=== PATIENT | male | born 1985 | race Caucasian/White ===

== ENCOUNTER → 2023-12-08 09:15 | Outpatient (REF) | payer OTHER, SELFPAY | LOC: DHSLP 09:15 | PROVIDERS: ATTENDING PHYSICIAN Family Medicine | DX: G47.33 Obstructive sleep apnea (adult) (pediatric) (principal); R06.83 Snoring | CPT/HCPCS: 95810 ==

== ENCOUNTER 2024-03-03 10:07 | Emergency (ER) | payer OTHER, SELFPAY ==
[2024-03-03 10:19] VITALS: BP 155/102
--- NOTE | 2024-03-03 11:18 | ED.GENMED ---
History of Present Illness
General
Chief Complaint: Chest Pain
Source: patient
Time Seen by Provider: 03/03/24 10:56
Travel History
Have you had any contact with someone who has COVID-19?: No
Do you have any symptoms of coronavirus? Fever > 100 degrees, chills, cough, shortness of breath, sore throat, loss of taste or smell, muscle aches, or headache?: No
History of Present Illness
History of Present Illness:
39-year-old male presenting to the emergency department for evaluation of left-sided chest discomfort that is been ongoing for the last couple of days intermittently but now accompanied with nausea with patient feeling his symptoms are likely
related to his GERD however patient was concerned for potential cardiac problems to contact his primary care provider today who recommended he come to the ER further evaluation. Patient states that the pain is not exacerbated or alleviated with
anything, describes it to be a pinching sensation to the left side of his chest, nonradiating and other than the nausea no other associated symptoms. He denies any fevers, chills, rigors, recent illnesses, coughing, pleurisy, abdominal pain,
vomiting, bowel changes or any other concerns. 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 Social history was insignificant and
family history was negative for any cardiac disease.
Past History
Past History
ED Past Medical History: GERD, HTN, Psychiatric (Bipolar disorder, anxiety), Other (MRSA infection) and Other (Anxiety); Negative IDDM
ED Past Surgical History: Other (Cataract extraction)
Social History
Tobacco: Former smoker
Alcohol: None
Drug: None
Personal: Single
Living: with family
Employment: Employed
Family History
Family History: Negative Diabetes, Hypertension or CAD
Review of Systems
Review of Systems
All Other Systems: ROS reviewed and negative except as documented in HPI and ROS
Phy Exam
Physical Exam
Physical Exam:
GENERAL: Alert , in no apparent distress
EYE: conjunctiva clear
NECK: Supple
ENT: o/p clr, mmm.
CARDIAC: Regular rate and rhythm, no murmur
LUNGS: Clear breath sounds bilaterally, no acute respiratory distress, no wheezes/rales/rhonchi
Abdomen: Soft, nontender, nondistended
NEUROLOGICAL: Alert and oriented
SKIN: Warm and dry, skin intact.
MUSCULOSKELETAL: well perfused.
PSYCH: Normal and appropriate interaction.
Scores
Heart Failure Risk
Heart Failure Risk Score: Not Applicable
Heart Score for Chest Pain Patients
STEMI patient?: No
History: Slightly or Non-Suspicious
ECG: Normal
Age: </= 45 years
Risk Factors: No Risk Factors
Troponin: </= Normal Limit
Heart Score for Chest Pain Patients: 0
Heart Score Risk: 2.5% MACE over next 6 weeks
Withdrawal Assessment of Alcohol
Withdrawal Assessment Completed?: Not applicable
Course
Orders/Labs/Results
Orders:
Orders
03/03/24 10:13
EKG [Electrocardiogram (*1)] Urgent
Reason for Study: Other
Other Reason for Exam: Chest Pressure
03/03/24 10:14
EKG- Treatment ONCE
03/03/24 11:05
Famotidine [Pepcid] 20 mg IV NOW STA
Mag Hydrox/Al Hydrox/Simeth [Maalox] 30 ml Phenobarb/Hyoscy/Atropine/Scop [] 10 ml Viscous Lidocaine 2% [Xylocaine Viscous Cup] 10 ml PO NOW
CR Chest - 2 Views Urgent
Comment:
Reason For Exam: chest pain, nausea
03/03/24 11:20
Phenobarb/Hyoscy/Atropine/Scop [] 10 ml .ROUTE .[facility]
03/03/24 11:21
Mag Hydrox/Al Hydrox/Simeth [Maalox] 30 ml .ROUTE .[facility]-MED ONE
Viscous Lidocaine 2% [Xylocaine Viscous Cup] 15 ml .ROUTE .[facility]
03/03/24 11:38
Complete Blood Count/With Diff Urgent
Comprehensive Metabolic Panel Urgent
Lipase Urgent
Troponin I Urgent
Abnormal Lab Results
03/03/24
11:38
MPV 11.3 H fL
(7.4-10.4)
Chloride 108 H mmol/L
(98-107)
03/03/24 11:38
03/03/24 11:38
Vital Signs
Initial and Last Documented VS:
Initial Vital Signs
Temp Pulse Resp BP Pulse Ox
99.9 F 94 18 155/102 97
03/03/24 10:19 03/03/24 10:19 03/03/24 10:19 03/03/24 10:19 03/03/24 10:19
Last Documented Vital Signs
Temp Pulse Resp BP Pulse Ox
99.9 F 74 15 122/87 96
03/03/24 10:19 03/03/24 13:09 03/03/24 13:00 03/03/24 13:09 03/03/24 13:00
MDM/Problems Addressed
Differential Diagnosis Includes:
GERD, gastritis, hiatal hernia, atypical ACS presentation, musculoskeletal chest wall pain
MDM/Problems Addressed:
39-year-old male presenting the emergency department for evaluation of chest discomfort and nausea that has been ongoing for the last few days. Patient states the symptoms seem to wax and wane without any specific reasoning. Currently stating
symptoms are waxing and waning since arriving to the emergency department. EKG done in triage is nonischemic. Had been seen by cardiology as an outpatient around 1 year ago. Patient does note he forgot to take his medications last night which is
why he believes his blood pressure is little bit elevated this morning but normally notes he is readily compliant with medication. Will perform cardiac workup as well as treat with GI cocktail. Will reassess following. If no abnormalities
anticipate chest pain hotline consultations to expedite cardiac visit.
Chronic conditions affecting care: HTN
*Pulse Oximetry
Patient hypoxic: no
*EKG
Interpreted by ED Provider?: Yes
Interpretation: normal
Heart Rate: 93
Rate: normal
Rhythm: sinus
Ischemia: no ischemia
*Drug Inspector Interpretation
Rate: normal
Rhythm: sinus
*Critical Care Note
Total Time (30-74mins, 75-104mins- exclusive of procedures): Not Applicable
Data Reviewed
Review of Other/Old Records Reveals: Labs and Records
Source: patient and records
Patient Management
Escalation/DeEscalation of care consider admission/obs:
Patient's workup is unremarkable. Nonischemic EKG, negative troponin and chest x-ray is otherwise within normal limits. Chest pain hotline was notified. He does note some improvement with the medications provided. Aware of return precautions to
ER but otherwise stable for discharge home
ED Attending Note
-
Portions of this chart may have been created with voice recognition software.� Occasional wrong word or��sound alike� substitutions may have occurred due to the inherent limitations of voice recognition software.
Discharge Plan
Departure
Patient Disposition: Home (Routine Discharge)
Date of Disposition: 03/03/24
Time of Disposition: 13:00
Patient with high blood pressure during this ER visit?: Yes
Discharge Problem:
Chest pain
Instructions: Chest Pain CBC Follow Up
Prescriptions:
No Action
cyclobenzaprine 10 MG tablet
10 mg PO TIDPRN PRN (Reason: muscle spasm) Qty: 12 0RF
ibuprofen 600 MG tablet
600 mg PO Q6H Qty: 30 0RF
oxycodone-acetaminophen 5 MG/325 MG tablet
1 tab PO Q4HPRN PRN (Reason: pain) Qty: 15 0RF
tamsulosin 0.4 MG capsule
0.4 mg PO DAILY Qty: 10 0RF
sulfamethoxazole-trimethoprim 1 TABLET tablet
1 tab PO BID Qty: 10 0RF
cephalexin [Keflex] 500 MG capsule
500 mg PO TID Qty: 21 0RF
pantoprazole [Protonix] 40 mg tablet,delayed release (DR/EC)
40 mg PO BID Qty: 60 0RF
Referrals:
Sujey Vann CRNP [Family Provider] -
Interventions
Interventions:
*Risk Screen - Suicide Last Done: 03/03/24 11:24
*General Assessment Last Done: 03/03/24 11:24
*Neglect/Abuse Screening Last Done: 03/03/24 11:24
ED- Fall Risk Assessment Last Done: 03/03/24 11:24
*ED COVID-19 Vaccine History Last Done: 03/03/24 10:22
*Nursing Disposition Last Done: 03/03/24 13:09
ED- Cardiac Assessment Last Done: 03/03/24 11:24
Discharge Date and Time
Discharge Date/Time: 03/03/24 13:09
Print Language: [id number]
[2024-03-03 11:24] VITALS: BP 119/86; BMI 37.6
[2024-03-03] MEDS: MAALOX 50 PO (11:38)
[2024-03-03] MEDS: PEPCID 20 MG IV (11:40)
[2024-03-03 11:57] LABS: % Basophils 0.6 % (0-2); % Eosinophils 1.4 % (0-6); % Immature Granulocytes 0.3 % (0-0.5); % Lymphocytes 21.4 % (20.5-51.1); % Monocytes 7.6 % (1.7-9.3); % Neutrophils 68.7 % (42.2-75.2); Absolute Eosinophils 0.1 10^3/uL (0-0.7); Absolute Lymphocytes 1.3 10^3/uL (1.2-3.4); Absolute Monocytes 0.5 10^3/uL (0.1-0.6); Absolute Neutrophils 4.3 10^3/uL (1.4-6.5); Hematocrit 44.6 % (39.0-52.0); Hemoglobin 14.8 g/dL (13.0-18.0); Mean Corp Hgb Conc. 33.2 g/dL (33.0-37.0); Mean Corpuscular Hgb 29.7 pg (27.0-31.0); Mean Corpuscular Volume 89.6 fL (80.0-94.0); Mean Platelet Volume 11.3 fL (7.4-10.4); Nucleated Red Blood Cells % 0 % (-); Platelet Count 181 10^3/uL (130-400); Red Blood Cell Count 4.98 10^6/uL (4.70-6.10); Red Cell Dist. Width 12.9 % (11.5-14.5); White Blood Cell Count 6.2 10^3/uL (4.8-10.8)
[2024-03-03 12:00] VITALS: BP 111/72
[2024-03-03 12:10] LABS: ALT (SGPT) 32 U/L (0-50); AST (SGOT) 31 U/L (17-59); Albumin 4.3 g/dl (3.5-5.0); Alkaline Phosphatase 90 U/L (38-126); Blood Urea Nitrogen 14 mg/dl (9-20); Calcium 9.4 mg/dl (8.4-10.2); Carbon Dioxide 26 mmol/L (22-30); Chloride 108 mmol/L (98-107); Estimated Creatinine Clearance > 125 ml/min; Glucose 98 mg/dl (70-99); Lipase 49 U/L (23-300); Potassium 4.1 mmol/L (3.5-5.1); Sodium 141 mmol/L (135-145); Total Bilirubin 0.4 mg/dl (0.2-1.3); Total Protein 7.6 g/dl (6.3-8.2); eGFR > 60.00
[2024-03-03 12:30] LABS: Troponin I < 0.012 ng/ml
[2024-03-03 13:00] VITALS: BP 122/87
[2024-03-03 13:09] VITALS: BP 122/87
== END 2024-03-03 13:09 | disposition home or self-care (01) ==
LOC: EMR 10:07
PROVIDERS: Physician Assistant Medical; EMERGENCY PHYSICIAN Emergency Medicine; FAMILY PHYSICIAN Nurse Practitioner Adult Health
DX: R07.89 Other chest pain (principal); I10 Essential (primary) hypertension; K21.9 Gastro-esophageal reflux disease without esophagitis; Z87.891 Personal history of nicotine dependence
CPT/HCPCS: 99285; 96374; 71046; 80053; 83690; 84484; 85025; 93005

== ENCOUNTER → 2024-03-27 09:08 | Outpatient (REF) | payer OTHER, SELFPAY | LOC: RCS 09:08 | PROVIDERS: ATTENDING PHYSICIAN Nurse Practitioner; FAMILY PHYSICIAN Nurse Practitioner Adult Health; REFERRING PHYSICIAN Internal Medicine Cardiovascular Disease | DX: R07.89 Other chest pain (principal); E78.00 Pure hypercholesterolemia, unspecified; I10 Essential (primary) hypertension | CPT/HCPCS: 93017; 93350 ==

== ENCOUNTER 2024-07-22 13:50 | Observation (INO) | payer OTHER, SELFPAY ==
[2024-07-22] VITALS (7 sets, daily range): BP systolic 115–154; BP diastolic 69–97; BMI 36.0
[2024-07-22 11:05] LABS: % Basophils 0.7 % (0-2); % Eosinophils 1.8 % (0-6); % Immature Granulocytes 0.2 % (0-0.5); % Lymphocytes 30.9 % (20.5-51.1); % Neutrophils 46.4 % (42.2-75.2); Absolute Eosinophils 0.1 10^3/uL (0-0.7); Absolute Lymphocytes 1.3 10^3/uL (1.2-3.4); Absolute Monocytes 0.9 10^3/uL (0.1-0.6); Hematocrit 42.7 % (39.0-52.0); Hemoglobin 14.8 g/dL (13.0-18.0); Mean Corp Hgb Conc. 34.7 g/dL (33.0-37.0); Mean Corpuscular Hgb 29.2 pg (27.0-31.0); Mean Corpuscular Volume 84.4 fL (80.0-94.0); Mean Platelet Volume 10.8 fL (7.4-10.4); Nucleated Red Blood Cells % 0 % (-); Platelet Count 193 10^3/uL (130-400); Red Blood Cell Count 5.06 10^6/uL (4.70-6.10); Red Cell Dist. Width 12.2 % (11.5-14.5); White Blood Cell Count 4.3 10^3/uL (4.8-10.8)
[2024-07-22 11:19] LABS: ALT (SGPT) 65 U/L (0-50); AST (SGOT) 53 U/L (17-59); Alkaline Phosphatase 99 U/L (38-126); Blood Urea Nitrogen 18 mg/dl (9-20); Calcium 10.3 mg/dl (8.4-10.2); Carbon Dioxide 26 mmol/L (22-30); Chloride 103 mmol/L (98-107); Glucose 135 mg/dl (70-99); Sodium 141 mmol/L (135-145); Total Bilirubin 0.5 mg/dl (0.2-1.3); eGFR > 60.00
[2024-07-22 11:29] LABS: Troponin I < 0.012 ng/ml
[2024-07-22 11:50] LABS: TSH < 0.02 uIU/ml (0.47-4.68)
--- NOTE | 2024-07-22 12:17 | ED.GENMED ---
History of Present Illness
General
Chief Complaint: Heart Rate Problem
Source: patient
Exam Limitations: none
Time Seen by Provider: 07/22/24 11:59
Nursing documentation reviewed up to this point in time: agreed with
History of Present Illness
History of Present Illness:
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
but worsened over the past 12 to 24 hours, heart rate as high as 170, he does get panic attacks occasionally, he has had weight loss but he states it was intentional, no fevers no chest pain or shortness of breath he has a PCP nurse practitioner and
a psychiatrist
Denies any history of thyroid disorder on no meds
Past History
Past History
ED Past Medical History: GERD, HTN, Psychiatric (Bipolar disorder, anxiety), Other (MRSA infection) and Other (Anxiety); Negative IDDM
ED Past Surgical History: Other (Cataract extraction)
Social History
Tobacco: Former smoker
Alcohol: None
Drug: None
Personal: Single
Living: with family
Employment: Employed
Family History
Family History: Negative Diabetes, Hypertension or CAD
Review of Systems
Review of Systems
All Other Systems: Not applicable
Constitutional: Reports weight loss; Denies fever, fatigue or night sweats
EENT: Reports no symptoms
Respiratory: Reports no symptoms
Cardiac: Reports palpitations and syncope (Near syncope); Denies chest pain
ABD/GI: Reports no symptoms
: Reports no symptoms
Musculoskeletal: Reports no symptoms
Neurological: Reports dizzy
Endocrine: Reports no symptoms
Hematologic/Lymphatic: Reports no symptoms
Phy Exam
Physical Exam
Physical Exam:
Physical Exam
General: no apparent distress, not acutely ill
Neck: No jaundice no
Heart: Tachycardic
Lungs: no acute respiratory distress. clear bilaterally
Abdomen: Not tender
Neuro: alert and oriented. no focal neurological deficits
Skin: no rash
Psychiatric: well kept. interactive and cooperative
Extremities: no edema. no calf tenderness
Course
Orders/Labs/Results
Orders:
Orders
07/22/24 10:42
ECG [Electrocardiogram (*1)] Urgent
Reason for Study: Tachycardia
EKG- Treatment ONCE
07/22/24 10:55
Complete Blood Count/With Diff Urgent
Comprehensive Metabolic Panel Urgent
Free T3 Urgent
Comment: ADD
Free T4 Urgent
Comment: ADD
TSH Urgent
Troponin I Urgent
07/22/24 12:01
Add On- LAB Urgent
Tests Added?: Free T4, T3
07/22/24 12:09
Metoprolol [Lopressor] 5 mg IV NOW STA
07/22/24 12:36
Add On- LAB Urgent
Tests Added?: urine drug screen
07/22/24 13:10
Admit/Transfer Patient As Directed
Co-Sign Provider:
Level of Care: Inpatient admission
Assign to:: Medical/Surgical
Physician / Group: Hospitalist
Diagnosis: Thyrotoxicosis
Reason for Hospitalization: Thyrotoxicosis
Expected length of stay greater than two midnights?: Yes
ELOS- Estimated Length of Stay in days: 3
I certify the patient meets the requirements for IP care: Yes
07/22/24 13:11
Code Status As Directed
Resuscitation Status: Full Code
07/22/24 13:38
Add On- LAB Routine
Tests Added?: intact pth
07/22/24 13:40
Hydrocortisone Sod Succ [Solu-Cortef] 300 mg 0.9% Sodium Chloride 100 ml [Nss] 100 ml IV NOW
07/22/24 14:00
Methimazole [Tapazole] 20 mg PO Q6H
Methimazole [Tapazole] 20 mg PO Q6H
07/22/24 14:37
Acetaminophen [Tylenol] 650 mg PO Q4HPRN PRN
Alprazolam [Xanax] 0.5 mg PO DAILYPRN PRN
Bisacodyl [Dulcolax] 10 mg RECTAL [id number] PRN
Clonazepam [Klonopin] 1 mg PO BIDPRN PRN
Docusate W/Senna [Senokot-S] 1 tablet PO BIDPRN PRN
Polyethylene Glycol Powder [Miralax] 17 grams PO DAILYPRN PRN
07/22/24 14:37
Activity As Directed
Activity Level: Ambulate
Intake/ Output As Directed
Frequency: Per unit guidelines
Neurological Checks As Directed
Frequency: Per unit guidelines
Vital Signs As Directed
Frequency: Per unit guidelines
Weight As Directed
Frequency: Daily
Pulse Ox/spot Check [RESP] Routine
Quantity: 1
Thyroid US [US Thyroid/Neck/Head] Routine
Comment:
Reason For Exam: Hyperthyroidism
DX Deep Vein Thrombosis Video Routine
07/22/24 Dinner
Cholesterol Lowering
At Your Request: Full Participation
Cholesterol Lowering: Sodium, 2 Gram
07/22/24 16:00
Hydrocortisone Sod Succinate [Solu-Cortef] 100 mg IV Q8
07/22/24 18:00
Aspirin Low Dose EC [Aspir Low (Enteric Coated)] 81 mg PO QPM
Atorvastatin [Lipitor] 40 mg PO QPM
Enoxaparin Sodium [Lovenox] 40 mg SC QPM
07/22/24 22:00
Cyclobenzaprine HCl [Flexeril] 10 mg PO HSPRN PRN
Oxcarbazepine [Trileptal] 600 mg PO HS
Pantoprazole [Protonix] 40 mg PO HS
Quetiapine Fumarate [Seroquel] 300 mg PO HS
07/23/24 06:01
Complete Blood Count/With Diff IN AM
07/23/24 08:00
Oxcarbazepine [Trileptal] 300 mg PO DAILY
Abnormal Lab Results
07/22/24
10:55
WBC 4.3 L 10^3/uL
(4.8-10.8)
MPV 10.8 H fL
(7.4-10.4)
Absolute Monos (auto) 0.9 H 10^3/uL
(0.1-0.6)
Monocytes % 20.0 H %
(1.7-9.3)
Glucose 135 H mg/dl
(70-99)
Calcium 10.3 H mg/dl
(8.4-10.2)
ALT 65 H U/L
(0-50)
TSH < 0.02 L uIU/ml
(0.47-4.68)
Free T4 4.45 H ng/dl
(0.78-2.19)
Free T3 > 22.80 H pg/ml
(2.77-5.27)
07/22/24 10:55
07/22/24 10:55
Vital Signs
Initial and Last Documented VS:
Initial Vital Signs
Temp Pulse Resp BP Pulse Ox
97.8 F 131 16 137/91 97
07/22/24 10:47 07/22/24 10:47 07/22/24 10:47 07/22/24 10:47 07/22/24 10:47
Last Documented Vital Signs
Temp Pulse Resp BP Pulse Ox
98.8 F 104 18 126/89 96
07/24/24 11:22 07/24/24 11:22 07/24/24 11:22 07/24/24 11:22 07/24/24 11:22
MDM/Problems Addressed
Differential Diagnosis Includes:
Palpitations hyperthyroid, arrhythmia panic attack electrolyte abnormality
MDM/Problems Addressed:
Palpitations low TSH
Chronic conditions affecting care:
No history of thyroid, is hypertensive with mental illness
Chronic conditions affecting care: Psychiatric illness
Acute Exacerbation and/or Progression of Chronic Illness: HTN and Psychiatric illness
*Critical Care Note
Total Time (30-74mins, 75-104mins- exclusive of procedures): Not Applicable
ED Attending Note
-
Portions of this chart may have been created with voice recognition software.� Occasional wrong word or��sound alike� substitutions may have occurred due to the inherent limitations of voice recognition software.
Discharge Plan
Departure
Patient Disposition: Admit
Date of Disposition: 07/22/24
Time of Disposition: 12:42
Admit to: Telemetry
Presentation/result/management discussed w/ accepting MD/DO: Hospitalist
Patient with high blood pressure during this ER visit?: No
Condition: Fair
Covid-19: Not Applicable
Discharge Problem:
Hyperthyroidism
Interventions
Interventions:
*Risk Screen - Suicide Last Done: 07/22/24 10:47
*General Assessment Last Done: 07/22/24 10:47
*Neglect/Abuse Screening Last Done: 07/22/24 10:47
*ED COVID-19 Vaccine History Last Done: 07/22/24 11:22
*Nursing Disposition Last Done: 07/22/24 14:39
ED- Cardiac Assessment Last Done: 07/22/24 11:22
ED- Pulmonary Assessment Last Done: 07/22/24 11:22
Discharge Date and Time
Discharge Date/Time: 07/22/24 14:39
[2024-07-22] MEDS: LOPRESSOR 5 MG IV ×2 (12:19→23:16)
--- NOTE | 2024-07-22 12:38 | HPS.HSE ---
Family Physician
-
Family Physician: MARIELA Mera
Chief Complaint
-
Tachycardia
History of Present Illness
39 years old male with PMH of anxiety, essential hypertension, bipolar disorder, GERD, who presented to [facility] ED on 07/22/2024 with 1 day history of palpitations and near syncope. He states that he usually gets panic attacks but has never had similar
symptoms in the past. He also reports 2 weeks history of diarrhea, [place] stool chart type , but denied abdominal pain, chest pain, shortness of breath, neck pain, fever, chills, nausea, or vomiting. He endorses 15lbs weight loss in 1.5 months
which is intentional with dieting and exercise.
Medical History
Past Medical History
Past Medical History: Reports GERD, HTN and Hypercholesterolemia; Denies Asthma or IDDM
Past Surgical History: Reports None
Social History
Tobacco: Non-smoker
Alcohol: None
Drug: None
Personal: Single
Living: With Family
Employment: Employed
Family History
Family History: Not pertinent
Allergies / Home Medications
Allergies reflects when Allergies were last updated in [facility].
Home Medications with original date entered in [facility]
Allergy/Medication List:
Allergies
Allergy/AdvReac Type Severity Reaction Status Date / Time
citalopram Allergy Unknown Verified 07/22/24 10:46
Home Medications
�Medication �Instructions �Recorded
alprazolam 0.5 mg tablet (Xanax) 0.5 mg PO DAILYPRN PRN anxiety 07/22/24
aspirin 81 mg tablet,delayed 81 mg PO QPM Blood Clot 07/22/24
release Prevention/Tx
atorvastatin 40 mg tablet (Lipitor) 40 mg PO QPM High Cholesterol 07/22/24
clonazepam 1 mg tablet 1 mg PO BIDPRN PRN anxiety 07/22/24
cyclobenzaprine 10 mg tablet 10 mg PO HSPRN PRN muscle spasms 07/22/24
fluticasone propionate 50 1 spray intranasal BID Allergies 07/22/24
mcg/actuation nasal
spray,suspension
lisinopril 10 1 tab PO QPM Blood Pressure 07/22/24
mg-hydrochlorothiazide 12.5 mg
tablet
oxcarbazepine 300 mg tablet 300 mg PO DAILY mental health 07/22/24
(Trileptal)
oxcarbazepine 600 mg tablet 600 mg PO HS mental health 07/22/24
(Trileptal)
pantoprazole 40 mg tablet,delayed 40 mg PO HS Gastrointestinal Issue 07/22/24
release (Protonix)
quetiapine 300 mg tablet (Seroquel) 300 mg PO HS mental health 07/22/24
Review of Systems
-
History Source: Patient
A 12 point ROS was completed and negative except as noted: Yes
Skin: Reports Other (Diffuse flushing)
Endocrine: Reports No Symptoms
Physical Exam
Vital Signs
Vital Signs
Temp Pulse Resp BP Pulse Ox
97.8 F 113 19 154/88 95
07/22/24 10:47 07/22/24 12:19 07/22/24 11:30 07/22/24 12:19 07/22/24 12:00
Physical Exam
General: Well Developed, Well Nourished and No Apparent Distress
HEENT: NormoCephalic, Moist mucous membranes and Atraumatic
Respiratory: Clear; No Wheezes or Crackles
Cardiac: S1/S2 and Regular Rhythm; No Murmur or Rub
GI: Soft, Non Tender, Non Distended and Normal Bowel Sounds; No Organomegaly
Rectal: Deferred by Provider
Musculoskeletal: No Clubbing, No Cyanosis and No Edema
Skin: Warm and Other (Diffusely flushed); No Rash
Neuro: Awake, Alert, AO x 3 and Nonfocal/grossly intact
Psych: Calm and Intact Judgment/Insight
Laboratory Results
-
07/22/24 10:55
07/22/24 10:55
Laboratory Results
Total Bilirubin 0.5 mg/dl (0.2-1.3) 07/22/24 10:55
AST 53 U/L (17-59) 07/22/24 10:55
ALT 65 U/L (0-50) H 07/22/24 10:55
Alkaline Phosphatase 99 U/L (38-126) 07/22/24 10:55
Troponin I < 0.012 ng/ml 07/22/24 10:55
Data Reviewed
-
Diagnostic Radiology: Image Personally Visualized and interpreted
Lab Data: Labs Reviewed by me and Discussed with Physician
Old Records: Reviewed
Impression/Plan
-
IMPRESSION: 39 years old male with PMH of essential hypertension, anxiety, hypercholesterolemia, presented with his mom at ED on 07/22/2024 with 1 day history of palpitations and near syncope. Reports 15lbs intentional weight loss.
Assessment/plan:
#Thyrotoxicosis/hyperthyroidism
-Admit to observation.
-Monitor on telemetry.
-Does not meet criteria for thyroid storm; palpitations, diarrhea and tachycardia.
-Reports TSH 0.41 in January, currently on detectable; T3 22.8, T4 4.45.
-Denies family history of autoimmune disease, recent URI or sick contacts.
-Thyroid ultrasound.
-Metoprolol XL 50 mg daily.
-Methimazole 20 mg given, will continue 10 mg tomorrow.
-No need for steroid.
-Check intact PTH.
-Check TRAb, TSI.
-Ultimately to follow-up with [facility] machine outpatient.
-Repeat thyroid function test in 6 weeks.
#Essential hypertension.
-Hold lisinopril while on metoprolol.
-Monitor blood pressure.
#Hyperlipidemia
-Continue atorvastatin
#Anxiety
-Continue Klonopin.
-Xanax as needed
#GERD
-Continue Protonix.
#Bipolar disorder
-Continue Seroquel.
DVT prophylaxis�Lovenox
CODE STATUS�full code
[2024-07-22 13:11] LABS: Free T3 > 22.80 pg/ml (2.77-5.27); Free T4 4.45 ng/dl (0.78-2.19)
--- NOTE | 2024-07-22 13:34 | W.PN.UPDATE ---
Update Note
Progress Note Update
39-year-old male presented the hospital with palpitations and near syncope. Heart rate was really high. Has had some diarrhea for the past 2 weeks. Denies any shortness of breath chest pain. He had palpitations last night. Weight loss but
patient was trying to lose weight. No jaundice
I personally performed a history and physical exam of the patient and discussed management with the resident. I reviewed the resident's note and agree with the documented findings and plan of care HPI/CC except for changes in documentation
Eye exam normal
No jaundice
Cardiovascular system S1-S2 tachycardic
Chest clear to auscultation
Abdomen soft and nontender
No pedal edema
No thyroid tenderness or thyromegaly noted
EKG reviewed by me sinus tachycardia no ischemia, no other
06/13/2023-normal size and wall thickness and systolic function. EF 55 to 60%. Mild concentric LVH.
# Hyperthyroidism/thyrotoxicosis
Palpitations, tachycardia and diarrhea
15 pound weight loss in the last month and a half. Patient also states that he was trying to lose weight with diet and exercise 2.
No evidence of heart failure, arrhythmia no eye symptoms
Does not look like an thyroid storm
No steroids for now
Methimazole 20 mg already given. Continue 10 mg daily dosage
Check thyroid receptor antibody and thyroid-stimulating immunoglobulin to rule out Graves' disease
Check intact PTH
Ultrasound of the thyroid
Metoprolol 50 mg daily
Repeat thyroid function test in 6 weeks.
Needs endocrine follow-up as outpatient
TSH was 0.41 in February 07
# Hypertension-hold off on lisinopril hydrochlorothiazide and do metoprolol 50 mg daily
# Hyperlipidemia-continue atorvastatin
# Anxiety-continue Klonopin
# Bipolar disease-continue Seroquel, Trileptal, o be continued
# GERD-continue PPI
# Obesity-sleep study 12/08/2023 did not show any evidence of sleep disorder
# DVT prophylaxis-Lovenox
# Full code
Discussed with patient's mother at bedside
[2024-07-22] MEDS: TOPROL XL 50 MG PO (15:09)
[2024-07-22] MEDS: TAPAZOLE 20 MG PO (15:10)
[2024-07-22 15:11] LABS: Intact PTH 16.1 pg/ml (13.6-85.8)
[2024-07-22] MEDS: LIPITOR 40 MG PO (17:06)
[2024-07-22] MEDS: ASPIR LOW (ENTERIC COATED) 81 MG PO (17:06)
[2024-07-22] MEDS: LOVENOX 40 MG SC (17:06)
[2024-07-22 18:10] LABS: Amphetamines Negative (Negative); Barbiturates Negative (Negative); Benzodiazepines Positive (Negative); Buprenorphine Negative (Negative); Cocaine Negative (Negative); Methadone Negative (Negative); Methamphetamines Negative (Negative); Opiates Negative (Negative)
[2024-07-22 18:11] LABS: Marijuana Negative (Negative); Phencyclidine Negative (Negative); Tricyclic Antidepressants Positive (Negative)
[2024-07-22 18:42] LABS: Fentanyl, Urine Negative (Negative)
[2024-07-22] MEDS: TRILEPTAL 600 MG PO (21:57)
[2024-07-22] MEDS: PROTONIX 40 MG PO (21:57)
[2024-07-22] MEDS: XANAX 0.5 MG PO (22:49)
--- NOTE | 2024-07-22 23:11 | W.PN.UPDATE ---
Update Note
Progress Note Update
-bp 154/81, hr 168, denied SOB or chest pain. One time order of Lopressor 5mg IV was given.
--- NOTE | 2024-07-23 01:41 | PTCARENOTE ---
@2144;Pt stated,'I already took my Seroquel 300mg at 1900 before my mother took my meds home.I normally take it at 1800 daily.'@2205;TT MARIELA Lira on above note and medication time was changed for tomorrow.
--- NOTE | 2024-07-23 01:45 | PTCARENOTE ---
@2310;Telephone call to [employer] and instructed on pt's anxiety and heart rate ranging 180-190, BP= 154/81 , POX room air =100% ,temp=98.3, Xanax 0.5mg po administered ,pt can feel his heart pounding ,declines chest/SOB pain and can't seem to sit
still.@2315;[employer] into see pt . Lopressor 5mg IV ordered and administered.@2350;CQ=240/69 & HR 125.@0005; heart rate now 116.Pt stated,'I feel so much better'.
[2024-07-23 06:00] VITALS: BMI 35.6
[2024-07-23 06:35] LABS: % Basophils 0.7 % (0-2); % Eosinophils 2.4 % (0-6); % Immature Granulocytes 0.2 % (0-0.5); % Lymphocytes 37.4 % (20.5-51.1); % Neutrophils 39.3 % (42.2-75.2); Absolute Eosinophils 0.1 10^3/uL (0-0.7); Absolute Monocytes 1.1 10^3/uL (0.1-0.6); Absolute Neutrophils 2.1 10^3/uL (1.4-6.5); Hematocrit 39.6 % (39.0-52.0); Hemoglobin 13.7 g/dL (13.0-18.0); Mean Corp Hgb Conc. 34.6 g/dL (33.0-37.0); Mean Corpuscular Hgb 28.3 pg (27.0-31.0); Mean Corpuscular Volume 81.8 fL (80.0-94.0); Nucleated Red Blood Cells % 0 % (-); Platelet Count 200 10^3/uL (130-400); Red Blood Cell Count 4.84 10^6/uL (4.70-6.10); Red Cell Dist. Width 12.2 % (11.5-14.5); White Blood Cell Count 5.4 10^3/uL (4.8-10.8)
[2024-07-23 06:58] LABS: Intact PTH 18.7 pg/ml (13.6-85.8)
[2024-07-23 07:19] VITALS: BP 121/72
[2024-07-23] MEDS: TOPROL XL 50 MG PO (07:41)
[2024-07-23] MEDS: TAPAZOLE 10 MG PO (07:42)
[2024-07-23] MEDS: TRILEPTAL 300 MG PO (07:42)
--- NOTE | 2024-07-23 07:55 | W.PN.HOSP.TC ---
Addendum entered and electronically signed by Jose López MD 07/23/24 15:43:
39-year-old male presented the hospital with palpitations and near syncope. Heart rate was really high. Has had some diarrhea for the past 2 weeks. Denies any shortness of breath chest pain. He had palpitations last night. Weight loss but
patient was trying to lose weight. No jaundice
I personally performed a history and physical exam of the patient and discussed management with the resident. I reviewed the resident's note and agree with the documented findings and plan of care HPI/CC except for changes in documentation
Eye exam normal
No jaundice
Cardiovascular system S1-S2 tachycardic
Chest clear to auscultation
Abdomen soft and nontender
No pedal edema
EKG reviewed by me sinus tachycardia no ischemia, no other
06/13/2023-normal size and wall thickness and systolic function. EF 55 to 60%. Mild concentric LVH.
# Hyperthyroidism/thyrotoxicosis
Palpitations, tachycardia and diarrhea
15 pound weight loss in the last month and a half. Patient also states that he was trying to lose weight with diet and exercise 2.
No evidence of heart failure, arrhythmia no eye symptoms
Does not look like an thyroid storm
No steroids for now
Methimazole 10 mg daily dosage
Check thyroid receptor antibody and thyroid-stimulating immunoglobulin to rule out Graves' disease
Check intact PTH
Ultrasound of the thyroid-no enlargement or nodules
Metoprolol XL 50 mg daily
Repeat thyroid function test in 6 weeks.
Needs endocrine follow-up as outpatient-Pt aware
TSH was 0.41 in February 07
# Hypertension-hold off on lisinopril hydrochlorothiazide and do metoprolol XL 50 mg daily
# Hyperlipidemia-continue atorvastatin
# Anxiety-continue Klonopin
# Stress echo 03/27/2024-normal LV size and function. No regional wall motion abnormalities. EF 55 to 60% no evidence of myocardial ischemia
# Bipolar disease-continue Seroquel, Trileptal, o be continued
# GERD-continue PPI
# Obesity-sleep study 12/08/2023 did not show any evidence of sleep disorder
# DVT prophylaxis-Lovenox
# Full code
Discussed with nursing
Monitor heart rate on telemetry if stable consider discharge.
Original Note:
Today's Communication/Plan
-
Continue Lopressor
Continue methimazole
Monitor on telemetry
Assessment / Plan
Assessment / Plan
IMPRESSION: 39 years old male with PMH of essential hypertension, anxiety, hypercholesterolemia, presented with his mom at ED on 07/22/2024 with 1 day history of palpitations and near syncope. Reports 15lbs intentional weight loss.
Assessment/plan:
#Thyrotoxicosis/hyperthyroidism
-Suspect viral etiology vs autoimmune.
-Thyroid ultrasound 07/22 negative for thyroid nodules.
-Continue metoprolol XL 50 mg daily.
-Continue methimazole 10 mg daily
-Intact PTH WNL.
-Monitor on telemetry
-TRAb, TSI pending.
-Ultimately to follow-up with hand dry cleaner outpatient.
-Repeat thyroid function test in 6 weeks.
#Essential hypertension.
-Hold lisinopril while on metoprolol.
-Monitor blood pressure.
#Hyperlipidemia
-Continue atorvastatin
#Anxiety
-Continue Klonopin.
-Xanax as needed
#GERD
-Continue Protonix.
#Bipolar disorder
-Continue Seroquel.
DVT prophylaxis�Lovenox
CODE STATUS�full code
Anticipated Discharge: Within 24 hours
Subjective/Interval History
-
Date of Service: July 23, 2024
Patient reported to have BP 154/81, heart rate 168 overnight, 5 mg IV Lopressor given. Reports no jaundice, or pedal edema. He denies shortness of breath, chest pain, abdominal pain, thyroid tenderness and states that his BM is currently
semiformed, he thinks he now has constipation.
Objective Data
-
Labs:
Laboratory Results
07/23/24 07/23/24 07/23/24
06:01 06:01 06:01
WBC 5.4
Hgb 13.7
Hct 39.6
Plt Count 200
Sodium Cancelled Pending
Potassium Cancelled Pending
Chloride Cancelled
Carbon Dioxide
BUN
Creatinine
Glucose
Calcium
Total Bilirubin
AST
ALT
Alkaline Phosphatase
07/23/24 07/23/24 07/23/24
06:01 06:01 06:01
WBC
Hgb
Hct
Plt Count
Sodium
Potassium
Chloride Pending
Carbon Dioxide Cancelled Pending
BUN Cancelled Pending
Creatinine Cancelled
Glucose
Calcium
Total Bilirubin
AST
ALT
Alkaline Phosphatase
07/23/24 07/23/24 07/23/24
06:01 06:01 06:01
WBC
Hgb
Hct
Plt Count
Sodium
Potassium
Chloride
Carbon Dioxide
BUN
Creatinine Pending
Glucose Cancelled Pending
Calcium Cancelled Pending
Total Bilirubin Cancelled
AST
ALT
Alkaline Phosphatase
07/23/24 07/23/24 07/23/24
06:01 06:01 06:01
WBC
Hgb
Hct
Plt Count
Sodium
Potassium
Chloride
Carbon Dioxide
BUN
Creatinine
Glucose
Calcium
Total Bilirubin Pending
AST Cancelled Pending
ALT Cancelled Pending
Alkaline Phosphatase Cancelled
07/23/24
06:01
WBC
Hgb
Hct
Plt Count
Sodium
Potassium
Chloride
Carbon Dioxide
BUN
Creatinine
Glucose
Calcium
Total Bilirubin
AST
ALT
Alkaline Phosphatase Pending
Vital Signs:
Vital Signs
Temp Pulse Resp BP Pulse Ox
98.5 F 107 17 121/72 96
07/23/24 07:19 07/23/24 07:41 07/23/24 07:19 07/23/24 07:41 07/23/24 07:19
I&O
07/22/24 07/23/24 07/24/24
06:59 06:59 06:59
Intake Total 960 / 960
Output Total 320 / 320
Balance 640 / 640
Review of Systems
-
History Source: Patient
All other systems: Not reviewed unless documented
Constitutional: Reports No Symptoms; Denies Fever or Fatigue
Respiratory: Reports No Symptoms; Denies Cough or Wheezing
Cardiac: Reports Palpitations; Denies Chest Pain or Syncope
Abdomen/GI: Reports No Symptoms; Denies Abdominal Pain, Nausea, Vomiting or Diarrhea
Genitourinary: Reports No Symptoms
Skin: Reports No Symptoms and Other
Physical Exam
-
General: Well Developed, No Apparent Distress and Comfortable
HEENT: Atraumatic and Moist Mucous Membranes
Respiratory: Clear to Auscultation; Negative Wheezes or Crackles
Cardiac: Regular Rhythm and S1/S2; Negative Murmur, Rub or Gallop
GI: Soft, Nontender, Nondistended and Normal Bowel Sounds; Negative Organomegaly
Rectal: Deferred by Provider
Musculoskeletal: No Clubbing, No Cyanosis and No Edema; Negative Cyanosis
Skin: Warm; Negative Rash or Jaundice
Neuro: Awake, AO x 3 and Nonfocal/Grossly Intact
Psych: Calm and Intact Judgement/Insight
Data Reviewed
-
Ultrasound: Report Reviewed by me and Discussed with Physician
Labs: Labs Reviewed by me and Discussed with Physician
Old Records: Reviewed
--- NOTE | 2024-07-23 12:28 | CM ---
CM following re: discharge planning.
Reviewed pt's chart, met with pt.
Pt is a 39 year old male, admitted with OBS status and primary dx of Thyrotoxicosis/hyperthyroidism. OBS status explained to the pt, pt expressed understanding, OBS letter signed, placed on chart, pt has a copy.
Pt reports he lives with parents 2SH, 1 step to enter, has no children. Pt described himself as independent in all areas [employer], drives, works.
PCP: Sujey Vann
Pharmacy: [facility].
D/C plan: home no needs. Mother to transport at discharge.
CM will follow with discharge plan updates as hospitalization progresses
[2024-07-23 12:30] LABS: ALT (SGPT) 57 U/L (0-50); AST (SGOT) 37 U/L (17-59); Albumin 3.8 g/dl (3.5-5.0); Alkaline Phosphatase 91 U/L (38-126); Blood Urea Nitrogen 24 mg/dl (9-20); Calcium 10.2 mg/dl (8.4-10.2); Carbon Dioxide 23 mmol/L (22-30); Chloride 102 mmol/L (98-107); Estimated Creatinine Clearance > 125 ml/min; Glucose 103 mg/dl (70-99); Potassium 4.3 mmol/L (3.5-5.1); Sodium 141 mmol/L (135-145); Total Bilirubin 0.5 mg/dl (0.2-1.3); Total Protein 6.6 g/dl (6.3-8.2); eGFR > 60.00
[2024-07-23] MEDS: XANAX 0.5 MG PO (14:20)
[2024-07-23 15:10] VITALS: BP 126/83
[2024-07-23] MEDS: ASPIR LOW (ENTERIC COATED) 81 MG PO (17:21)
[2024-07-23] MEDS: LIPITOR 40 MG PO (17:21)
[2024-07-23] MEDS: LOVENOX 40 MG SC (17:21)
[2024-07-23] MEDS: SEROQUEL 300 MG PO (17:25)
[2024-07-23] MEDS: LOPRESSOR 2.5 MG IV (18:36)
[2024-07-23] MEDS: TOPROL XL 25 MG PO (18:46)
[2024-07-23 19:40] VITALS: BP 127/80
[2024-07-23] MEDS: TRILEPTAL 600 MG PO (21:50)
[2024-07-23] MEDS: PROTONIX 40 MG PO (21:50)
[2024-07-23 23:15] VITALS: BP 111/83
[2024-07-24 03:54] VITALS: BP 115/77
[2024-07-24 04:46] VITALS: BMI 36.0
--- NOTE | 2024-07-24 05:53 | PTCARENOTE ---
Pt's heart rate ranges 95-100/minute while in bed this shift.When pt gets OOB to walk in room or BR, heart rate increases to 120 -140/minute but is not sustained.Pt denies CP/SOB with heart rate increase this shift.
[2024-07-24 07:50] VITALS: BP 136/88
[2024-07-24] MEDS: TOPROL XL 50 MG PO (08:11)
[2024-07-24] MEDS: TRILEPTAL 300 MG PO (08:11)
[2024-07-24] MEDS: TAPAZOLE 10 MG PO (08:12)
--- NOTE | 2024-07-24 09:25 | W.PN.HOSP.TC ---
Addendum entered and electronically signed by Jose López MD 07/24/24 13:01:
I personally performed a history and physical exam of the patient and discussed management with the resident. I reviewed the resident's note and agree with the documented findings and plan of care . Rounded together.
Pt feels okay. Had a mild twwinge on the chest wall. No Pleurisy
Exam unremarkable
Tachycardia Mutch better
D-dimer normal range.
Patient is aware that he needs to follow his heart rate and change metoprolol to 50 mg daily if his heart rate is less than 60.
He is also aware that he needs to take methimazole and follow-up with endocrine
Will not discharge patient on lisinopril hydrochlorothiazide since his blood pressure was controlled with the beta-blockers no.
Discharge
Original Note:
Today's Communication/Plan
-
Metoprolol 75 mg daily
Discharge planning
Assessment / Plan
Assessment / Plan
IMPRESSION: 39 years old male with PMH of essential hypertension, anxiety, hypercholesterolemia, presented with his mom at ED on 07/22/2024 with 1 day history of palpitations and near syncope. Reports 15lbs intentional weight loss.
Assessment/plan:
#Thyrotoxicosis/hyperthyroidism
-Suspect viral etiology vs autoimmune.
-Thyroid ultrasound 07/22 negative for thyroid nodules.
-Continue metoprolol XL 50 mg daily, additional 25 mg at night.
-Continue methimazole 10 mg daily.
-Intact PTH WNL.
-Monitor on telemetry
-TRAb, TSI to rule out Graves' disease pending.
-Ultimately to follow-up with sand drier outpatient, referral given to patient.
-Repeat thyroid function test in 6 weeks.
#Essential hypertension.
-Hold lisinopril while on metoprolol.
-Monitor blood pressure.
#Hyperlipidemia
-Continue atorvastatin
#Anxiety
-Continue Klonopin.
-Xanax as needed
#GERD
-Continue Protonix.
#Bipolar disorder
-Continue Seroquel.
DVT prophylaxis�Lovenox
CODE STATUS�full code
Anticipated Discharge: Today
Subjective/Interval History
-
Date of Service: July 24, 2024
Patient seen and examined lying on his bed. He reported that his heart rate was up again last night when he went to use the bathroom but went back down when he was back on his bed. He denies chest pain, diarrhea, fever, chills, swelling,
headaches, abdominal pain, nausea or vomiting.
Objective Data
-
Vital Signs:
Vital Signs
Temp Pulse Resp BP Pulse Ox
98.3 F 106 16 136/88 95
07/24/24 07:50 07/24/24 08:11 07/24/24 07:50 07/24/24 08:11 07/24/24 07:50
I&O
07/23/24 07/24/24 07/25/24
06:59 06:59 06:59
Intake Total 960 / 960 1080 / 1080
Output Total 320 / 320
Balance 640 / 640 1080 / 1080
Review of Systems
-
History Source: Patient
All other systems: Not reviewed unless documented
Constitutional: Reports No Symptoms; Denies Fever or Fatigue
Respiratory: Reports No Symptoms; Denies Cough or Wheezing
Cardiac: Reports Palpitations; Denies Chest Pain or Syncope
Abdomen/GI: Reports No Symptoms; Denies Abdominal Pain, Nausea, Vomiting or Diarrhea
Genitourinary: Reports No Symptoms
Skin: Reports No Symptoms and Other
Physical Exam
-
General: Well Developed, No Apparent Distress and Comfortable
HEENT: Atraumatic and Moist Mucous Membranes
Respiratory: Clear to Auscultation; Negative Wheezes or Crackles
Cardiac: Regular Rhythm and S1/S2; Negative Murmur, Rub or Gallop
GI: Soft, Nontender, Nondistended and Normal Bowel Sounds; Negative Organomegaly
Rectal: Deferred by Provider
Musculoskeletal: No Clubbing, No Cyanosis and No Edema; Negative Cyanosis
Skin: Warm; Negative Rash or Jaundice
Neuro: Awake, AO x 3 and Nonfocal/Grossly Intact
Psych: Calm and Intact Judgement/Insight
Data Reviewed
-
Ultrasound: Report Reviewed by me and Discussed with Physician
Labs: Labs Reviewed by me and Discussed with Physician
Old Records: Reviewed
[2024-07-24 11:09] LABS: D-Dimer 0.44 ug/mlFEU (0.00-0.50)
[2024-07-24 11:22] VITALS: BP 126/89
--- NOTE | 2024-07-24 13:52 | CM ---
CM following re: discharge planning.
Reviewed pt's chart.
Discharge order noted. Pt is aware and he stated his mother will transport him home.
D/C plan: home no needs. Mother to transport.
--- NOTE | 2024-07-24 16:30 | W.DCSUMMARY ---
Discharge Summary
Discharge Data
Date of Admission: 07/22/24
Date of Discharge: 07/24/24
-
Pending Results: Yes
Additional Pending Results:
TRAb, TSI antibody
Hospital Course
Discharging Physician : Jose López MD ; Rolo Kenyon MD
Disposition : Home
Primary care physician : Sujey Vann CRNP
Principal Discharge diagnosis :
Thyrotoxicosis
Hypothyroidism
Hypertension
Hyperlipidemia
Anxiety
Bipolar disease
GERD
Hospital Course : 39-year-old male with PMH of anxiety, panic attacks, essential hypertension, by Polar disorder, GERD, who presented to ED on 07/22/2024 with 1 day history of palpitations, near syncope and 2 weeks history of diarrhea with [place]
stool chart type . At the time of evaluation, patient was seen to be flushed, and tachycardic. He also endorsed 15lbs intentional weight loss over a month. Labs done in the ED was consistent with undetectable TSH and further evaluation showed
hyperthyroidism. Patient was started on metoprolol, methimazole and was admitted on observation, monitored on telemetry for further evaluation and management.
Patient had 2 days stay in the hospital with intermittent tachycardia, no jaundice, pedal edema, or arrhythmias. His intact PTH was within normal limits, however his serum TSI and TRAb are still pending at the time of discharge. Patient was
maintained on 50 mg metoprolol and additional 25 mg at night for heart rate control. He was also prescribed a one-time dose of methimazole 20 mg which was reduced to 10 mg daily. On the morning of discharge patient reports a left chest pressure
and the D-dimer ordered to assess for clotting was negative.
Condition on discharge: Awake, alert and oriented x3, answer question properly, able to make own decision and take care of activities of daily living, speech clear and comprehensive, continent of the bowel and bladder, ambulate without museum assistant,
goes home where lives with the family independently. Patient has been evaluated and is medically stable for discharge. Patient has been instructed to monitor his heart rate and change metoprolol to 50 mg daily if he has a sustained heart rate
less than 60. He has also been instructed to take his methimazole, follow-up with his primary care physician and and endocrinology upon discharge.
Important imaging findings :
Diffusely heterogeneous and hyperemic thyroid gland.
Right thyroid lobe measures 5.0 x 2.3 x 2.0 cm. No discrete solid measurable nodules at least 5 mm in size.
Left thyroid lobe measures 5.1 x 2.2 x 2.1 cm. No discrete solid measurable nodules at least 5 mm in size.
Thyroid isthmus has normal appearance.

IMPRESSION:

1. No discrete thyroid nodules.
Discharge Plan
-
Patient Disposition: Home (Routine Discharge)
Discharge Diagnosis/Procedures: Thyrotoxicosis
Hypothyroidism
Hypertension
Hyperlipidemia
Anxiety
Bipolar disease
GERD
Condition: Good
Diet: 2 Gram Sodium
Activity: As tolerated
Driving Restrictions: As prior to admission
Blood Work: Thyroid function tests 4 weeks.
Activity Restrictions/Additional Instructions:
Thyroid-stimulating immunoglobulin, thyroid receptor antibody tests are pending. Please follow-up with primary physician or with endocrinology for results. You need to see primary physician or endocrinology to adjust metoprolol and methimazole
dosing. This is very important.
Weight loss advised
Referrals:
Sujey Vann CRNP [Family Provider] - in less than 1 week
Nickolas Henry MD [Consulting Staff] - in less than 1 week
Additional Discharge Medication Instructions: Stop lisinopril hydrochlorothiazide
Prescriptions:
New
methimazole 5 mg Tablet
10 mg PO DAILY 30 Days Qty: 60 0RF
metoprolol succinate 25 mg Tablet Extended Release 24 Hr
25 mg PO DAILY@1999 30 Days Qty: 30 0RF
Rx Instructions:
Take 1 tablet once daily at night, skip a dose if heart rate is = 60
metoprolol succinate 50 mg Tablet Extended Release 24 Hr
50 mg PO DAILY 30 Days Qty: 30 0RF
Rx Instructions:
Take 1 tablet daily in the morning
Continued
pantoprazole [Protonix] 40 mg tablet,delayed release (DR/EC)
40 mg PO HS
cyclobenzaprine 10 mg Tablet
10 mg PO HSPRN PRN (Reason: muscle spasms)
atorvastatin [Lipitor] 40 mg Tablet
40 mg PO QPM
quetiapine [Seroquel] 300 mg Tablet
300 mg PO DAILY
Rx Instructions:
pt takes daily at 1800
clonazepam 1 mg Tablet
1 mg PO BIDPRN PRN (Reason: anxiety)
oxcarbazepine [Trileptal] 300 mg Tablet
300 mg PO DAILY
aspirin 81 mg Tablet,Delayed Release (Dr/Ec)
81 mg PO QPM
alprazolam [Xanax] 0.5 mg Tablet
0.5 mg PO DAILYPRN PRN (Reason: anxiety)
oxcarbazepine [Trileptal] 600 mg Tablet
600 mg PO HS
fluticasone propionate 50 mcg/actuation [place],Suspension
1 spray INTRANASAL BID
Discontinued
lisinopril-hydrochlorothiazide 10-12.5 mg Tablet
1 tab PO QPM
Discharge Orders:
Discharge Patient (As Directed); Ordered 07/24/24
Ordered By: Rolo Kenyon
Discharge Date and Time
Discharge Date/Time: 07/24/24 14:25
Print Language: SLOVENIAN
[2024-07-25 01:26] LABS: TSH Receptor Antibody 9.44 IU/L (<=1.75)
[2024-07-25 21:31] LABS: Thyroid Stim. Immunoglobulin 7.34 IU/L (<=0.54)
== END 2024-07-24 14:25 | disposition home or self-care (01) ==
LOC: 3 WEST ACU 13:50
PROVIDERS: Student in an Organized Health Care Education/Training Program; ADMITTING PHYSICIAN Hospitalist; EMERGENCY PHYSICIAN Emergency Medicine; FAMILY PHYSICIAN Nurse Practitioner Adult Health
DX: E05.90 Thyrotoxicosis, unspecified without thyrotoxic crisis or storm (principal); R00.2 Palpitations; R00.0 Tachycardia, unspecified; I10 Essential (primary) hypertension; E66.9 Obesity, unspecified; F31.9 Bipolar disorder, unspecified; R19.7 Diarrhea, unspecified; E78.00 Pure hypercholesterolemia, unspecified; F41.0 Panic disorder [episodic paroxysmal anxiety]; E03.9 Hypothyroidism, unspecified; R23.2 Flushing; F41.9 Anxiety disorder, unspecified; K21.9 Gastro-esophageal reflux disease without esophagitis; Z86.14 Personal history of Methicillin resistant Staphylococcus aureus infection; Z87.891 Personal history of nicotine dependence; Z68.35 Body mass index [BMI] 35.0-35.9, adult; Z79.82 Long term (current) use of aspirin
CPT/HCPCS: 76536; 80053; 80306; 80307; 83520; 83970; 84439; 84443; 84445; 84481; 84484; 85025; 85379; 87070; 93005; 96374; 99285

== ENCOUNTER 2024-07-25 20:33 | Emergency (ER) | payer OTHER, SELFPAY ==
[2024-07-25] VITALS (7 sets, daily range): BP systolic 104–150; BP diastolic 64–93; BMI 34.4
[2024-07-25 21:14] LABS: % Basophils 0.7 % (0-2); % Immature Granulocytes 0.2 % (0-0.5); % Lymphocytes 33.2 % (20.5-51.1); % Monocytes 18.4 % (1.7-9.3); % Neutrophils 46.5 % (42.2-75.2); Absolute Eosinophils 0.1 10^3/uL (0-0.7); Absolute Lymphocytes 1.9 10^3/uL (1.2-3.4); Absolute Monocytes 1.1 10^3/uL (0.1-0.6); Absolute Neutrophils 2.7 10^3/uL (1.4-6.5); Hematocrit 40.3 % (39.0-52.0); Hemoglobin 14.1 g/dL (13.0-18.0); Mean Corpuscular Hgb 29.3 pg (27.0-31.0); Mean Corpuscular Volume 83.8 fL (80.0-94.0); Mean Platelet Volume 11.2 fL (7.4-10.4); Nucleated Red Blood Cells % 0 % (-); Platelet Count 197 10^3/uL (130-400); Red Blood Cell Count 4.81 10^6/uL (4.70-6.10); Red Cell Dist. Width 11.9 % (11.5-14.5); White Blood Cell Count 5.8 10^3/uL (4.8-10.8)
[2024-07-25 21:29] LABS: ALT (SGPT) 70 U/L (0-50); AST (SGOT) 51 U/L (17-59); Albumin 4.1 g/dl (3.5-5.0); Alkaline Phosphatase 91 U/L (38-126); Blood Urea Nitrogen 23 mg/dl (9-20); Calcium 10.1 mg/dl (8.4-10.2); Carbon Dioxide 26 mmol/L (22-30); Chloride 102 mmol/L (98-107); Estimated Creatinine Clearance > 125 ml/min; Glucose 119 mg/dl (70-99); Potassium 3.9 mmol/L (3.5-5.1); Sodium 141 mmol/L (135-145); Total Bilirubin 0.5 mg/dl (0.2-1.3); Total Protein 7.1 g/dl (6.3-8.2); eGFR > 60.00
[2024-07-25 22:00] LABS: TSH Reflex To Free T4 < 0.02 uIU/ml (0.47-4.68)
[2024-07-25 22:30] LABS: Free T4 3.82 ng/dl (0.78-2.19)
--- NOTE | 2024-07-25 22:42 | ED.GENMED ---
History of Present Illness
General
Chief Complaint: Heart Rate Problem
Source: patient, records and family (Mother)
Exam Limitations: none
Time Seen by Provider: 07/25/24 21:51
Nursing documentation reviewed up to this point in time: agreed with
History of Present Illness
History of Present Illness:
39-year-old male with a past medical history of hypertension, hyperlipidemia, GERD, hypothyroidism who presents to the ER for evaluation of tachycardia and palpitations. Patient was notably recently admitted to this hospital 07/22 until 07/24 for
hyperthyroidism�presenting symptoms were palpitations, weight loss, diarrhea. He was started on methimazole 10 mg daily and was also started on metoprolol 50 mg in the morning and 25 mg in the evening. He says that he has been doing well since
discharge but this evening prior to arrival started to have palpitations and noted that his heart rate was severely elevated he says to the 180�190 range. He says that he was having some shortness of breath and palpitations. Denies dizziness or
chest pain. He says that he took his evening dose of metoprolol 25 mg a little bit early and came to the emergency room. He says symptoms have improved since arrival heart rate now in the low 100s. He reports compliance with his medications
without any missed doses. Denies caffeine use, drug use, alcohol use.
Past History
Past History
ED Past Medical History: GERD, HTN, Psychiatric (Bipolar disorder, anxiety), Other (MRSA infection) and Other (Anxiety); Negative IDDM
ED Past Surgical History: Other (Cataract extraction)
Social History
Tobacco: Former smoker
Alcohol: None
Drug: None
Personal: Single
Living: with family
Employment: Employed
Family History
Family History: Negative Diabetes, Hypertension or CAD
Review of Systems
Review of Systems
All Other Systems: ROS reviewed and negative except as documented in HPI and ROS
Respiratory: Reports trouble breathing
Cardiac: Reports palpitations; Denies chest pain or diaphoresis
ABD/GI: Denies abdominal pain, nausea or vomiting
: Denies flank pain
Musculoskeletal: Denies neck pain or back pain
Neurological: Denies dizzy or headache
Phy Exam
Physical Exam
Physical Exam:
General: Awake, alert, oriented x3; no acute distress
Head: Normocephalic, atraumatic
Eyes: Conjunctiva normal, sclera anicteric
Throat: Airway intact, handling secretions
Neck: Trachea midline
Lungs: Clear to auscultation bilaterally, no wheezing, rales, rhonchi
Heart: Tachycardia with regular rhythm, no murmurs, gallops, or rubs
Abd: Soft, non distended, nontender
Neuro: No gross deficit
Skin: no rash
Extremities: No edema in extremities, warm well-perfused
Scores
Heart Failure Risk
Heart Failure Risk Score: Not Applicable
Heart Score for Chest Pain Patients
STEMI patient?: Not applicable
Withdrawal Assessment of Alcohol
Withdrawal Assessment Completed?: Not applicable
Course
Orders/Labs/Results
Orders:
Orders
07/25/24 20:49
Electrocardiogram (*1) Urgent
Reason for Study: Tachycardia
07/25/24 20:50
EKG- Treatment ONCE
07/25/24 21:01
Complete Blood Count/With Diff Urgent
Comprehensive Metabolic Panel Urgent
Free T4 Urgent
TSH Reflex To Free T4 Urgent
Abnormal Lab Results
07/25/24
21:01
MPV 11.2 H fL
(7.4-10.4)
Absolute Monos (auto) 1.1 H 10^3/uL
(0.1-0.6)
Monocytes % 18.4 H %
(1.7-9.3)
BUN 23 H mg/dl
(9-20)
Glucose 119 H mg/dl
(70-99)
ALT 70 H U/L
(0-50)
TSH (Reflex) < 0.02 L uIU/ml
(0.47-4.68)
Free T4 3.82 H ng/dl
(0.78-2.19)
07/25/24 21:01
07/25/24 21:01
Vital Signs
Initial and Last Documented VS:
Initial Vital Signs
Temp Pulse Resp BP Pulse Ox
36.8 C 148 18 150/93 98
07/25/24 20:46 07/25/24 20:46 07/25/24 20:46 07/25/24 20:46 07/25/24 20:46
Last Documented Vital Signs
Temp Pulse Resp BP Pulse Ox
36.8 C 107 16 125/78 97
07/25/24 20:46 07/25/24 22:15 07/25/24 22:15 07/25/24 22:00 07/25/24 22:15
MDM/Problems Addressed
Differential Diagnosis Includes:
Hyperthyroidism, dysrhythmia, electrolyte abnormality, anxiety
MDM/Problems Addressed:
39-year-old male presents for evaluation due to palpitations and tachycardia similar symptoms prior to recent admission for hyperthyroidism. Took his evening dose of metoprolol and symptoms have improved. Was hypertensive and very tachycardic in
triage but by the time of my assessment he is normotensive with a heart rate of 104. Rest of vitals normal. Physical exam as above. Labs sent in triage including a CBC and a CMP showed no clinically significant abnormalities. His TSH is
undetectable free T4 is 3.82 Improved but still elevated. EKG showed sinus tachycardia. Will plan to increase methimazole to 20 mg p.o. daily, increase metoprolol to 50 mg twice daily. Patient already plan for outpatient PCP and endocrine
follow-up. He feels comfortable with this plan. All questions answered.
Chronic conditions affecting care:
Hyperthyroidism
Acute Exacerbation and/or Progression of Chronic Illness:
Acutely hypertensive improved without intervention here; continue to monitor but no emergent antihypertensives indicated.
Acute Exacerbation and/or Progression of Chronic Illness: HTN
*Pulse Oximetry
Patient hypoxic: no
*EKG
Interpreted by ED Provider?: Yes
Heart Rate: 122
Rate: tachycardiac
Rhythm: sinus and sinus tachycardia
[place]: normal axis
Interval: normal interval
QRS Pattern: normal QRS
Ischemia: no ischemia
*Critical Care Note
Total Time (30-74mins, 75-104mins- exclusive of procedures): Not Applicable
Data Reviewed
Review of Other/Old Records Reveals: Labs, Records and Discharge Summary
Source: patient, records and family
ED Attending Note
-
Portions of this chart may have been created with voice recognition software.� Occasional wrong word or��sound alike� substitutions may have occurred due to the inherent limitations of voice recognition software.
Discharge Plan
Departure
Patient with high blood pressure during this ER visit?: Yes
Discharge Problem:
Hyperthyroidism
Instructions: Hyperthyroidism (overactive thyroid)
Prescriptions:
New
methimazole 10 mg tablet
20 mg PO DAILY Qty: 60 0RF
metoprolol succinate 50 mg tablet extended release 24 hr
50 mg PO BID Qty: 60 0RF
Rx Instructions:
Decrease to 25mg twice daily if HR < 60
Discontinued
methimazole 5 mg Tablet
10 mg PO DAILY 30 Days Qty: 60 0RF
metoprolol succinate 25 mg Tablet Extended Release 24 Hr
25 mg PO DAILY@1999 30 Days Qty: 30 0RF
Rx Instructions:
Take 1 tablet once daily at night, skip a dose if heart rate is = 60
metoprolol succinate 50 mg Tablet Extended Release 24 Hr
50 mg PO DAILY 30 Days Qty: 30 0RF
Rx Instructions:
Take 1 tablet daily in the morning
No Action
pantoprazole [Protonix] 40 mg tablet,delayed release (DR/EC)
40 mg PO HS
cyclobenzaprine 10 mg Tablet
10 mg PO HSPRN PRN (Reason: muscle spasms)
atorvastatin [Lipitor] 40 mg Tablet
40 mg PO QPM
quetiapine [Seroquel] 300 mg Tablet
300 mg PO DAILY
Rx Instructions:
pt takes daily at 1800
clonazepam 1 mg Tablet
1 mg PO BIDPRN PRN (Reason: anxiety)
oxcarbazepine [Trileptal] 300 mg Tablet
300 mg PO DAILY
aspirin 81 mg Tablet,Delayed Release (Dr/Ec)
81 mg PO QPM
alprazolam [Xanax] 0.5 mg Tablet
0.5 mg PO DAILYPRN PRN (Reason: anxiety)
oxcarbazepine [Trileptal] 600 mg Tablet
600 mg PO HS
fluticasone propionate 50 mcg/actuation [place],Suspension
1 spray INTRANASAL BID
Referrals:
Gerry Velasco CRNP [Family Provider] - Follow up in 2-3 days
Nickolas Henry MD [Consulting Staff] - Call in 1-3 days for appt
Activity Restrictions/Additional Instructions:
Thank you for visiting the Emergency Department at [facility].
1. Please schedule a follow up appointment as directed. Call first thing tomorrow morning to make an appointment.
2. If indicated, please take your medications as instructed and indicated on discharge paperwork.
3. If any of your symptoms do not improve, or persist, or become more severe within 6-12 hours, please return to the emergency department for further care.
4. Please return to the emergency department if you develop a headache, neck pain/stiffness, fever greater than 100.4F, chest pain, shortness of breath, persistent nausea, vomiting, slurred speech, difficulty walking, numbness/tingling, weakness,
signs of infection or any other symptoms that are worrisome to you.
Please call [phone] if you have any questions.
Interventions
Interventions:
*Risk Screen - Suicide Last Done: 07/25/24 20:49
*General Assessment Last Done: 07/25/24 20:49
*Neglect/Abuse Screening Last Done: 07/25/24 20:49
ED- Fall Risk Assessment Last Done: 07/25/24 21:25
*ED COVID-19 Vaccine History Last Done: 07/25/24 21:45
ED- Cardiac Assessment Last Done: 07/25/24 21:23
ED- Pulmonary Assessment Last Done: 07/25/24 21:23
Discharge Date and Time
Print Language: DJIBOUTIAN
== END 2024-07-25 23:45 | disposition home or self-care (01) ==
LOC: EMR 20:33
PROVIDERS: Emergency Medicine; EMERGENCY PHYSICIAN Emergency Medicine; FAMILY PHYSICIAN Registered Nurse
DX: E05.90 Thyrotoxicosis, unspecified without thyrotoxic crisis or storm (principal); I10 Essential (primary) hypertension; E78.00 Pure hypercholesterolemia, unspecified; E03.9 Hypothyroidism, unspecified; K21.9 Gastro-esophageal reflux disease without esophagitis; F31.9 Bipolar disorder, unspecified; F41.9 Anxiety disorder, unspecified; Z79.899 Other long term (current) drug therapy; Z87.891 Personal history of nicotine dependence
CPT/HCPCS: 99283; 80053; 84439; 84443; 85025; 93005

== ENCOUNTER 2024-07-28 12:28 | Emergency (ER) | payer OTHER, SELFPAY ==
[2024-07-28] VITALS (7 sets, daily range): BP systolic 121–135; BP diastolic 75–91; BMI 35.1
[2024-07-28 12:55] LABS: % Basophils 0.7 % (0-2); % Eosinophils 1.5 % (0-6); % Immature Granulocytes 0.4 % (0-0.5); % Lymphocytes 30.3 % (20.5-51.1); % Neutrophils 50.1 % (42.2-75.2); Absolute Eosinophils 0.1 10^3/uL (0-0.7); Absolute Lymphocytes 1.4 10^3/uL (1.2-3.4); Absolute Monocytes 0.8 10^3/uL (0.1-0.6); Absolute Neutrophils 2.3 10^3/uL (1.4-6.5); Hematocrit 41.6 % (39.0-52.0); Mean Corp Hgb Conc. 33.7 g/dL (33.0-37.0); Mean Corpuscular Hgb 28.4 pg (27.0-31.0); Mean Corpuscular Volume 84.4 fL (80.0-94.0); Mean Platelet Volume 10.9 fL (7.4-10.4); Nucleated Red Blood Cells % 0 % (-); Platelet Count 220 10^3/uL (130-400); Red Blood Cell Count 4.93 10^6/uL (4.70-6.10); Red Cell Dist. Width 11.9 % (11.5-14.5); White Blood Cell Count 4.5 10^3/uL (4.8-10.8)
[2024-07-28 13:07] LABS: ALT (SGPT) 77 U/L (0-50); AST (SGOT) 51 U/L (17-59); Albumin 3.9 g/dl (3.5-5.0); Alkaline Phosphatase 91 U/L (38-126); Blood Urea Nitrogen 20 mg/dl (9-20); Calcium 10.2 mg/dl (8.4-10.2); Carbon Dioxide 28 mmol/L (22-30); Chloride 100 mmol/L (98-107); Estimated Creatinine Clearance > 125 ml/min; Glucose 95 mg/dl (70-99); Potassium 4.4 mmol/L (3.5-5.1); Sodium 139 mmol/L (135-145); Total Bilirubin 0.4 mg/dl (0.2-1.3); eGFR > 60.00
[2024-07-28 13:17] LABS: Troponin I < 0.012 ng/ml
--- NOTE | 2024-07-28 13:23 | ED.GENMED ---
History of Present Illness
<Makenna Reed MD, Resident - Last Filed: 07/29/24 06:10>
General
Chief Complaint: Change in Mental Status
Source: patient
Exam Limitations: none
Time Seen by Provider: 07/28/24 13:22
Nursing documentation reviewed up to this point in time: agreed with
History of Present Illness
History of Present Illness:
39-year-old male with a past medical history of hypertension, hyperlipidemia, GERD, hypothyroidism who presents to the ER for evaluation of Rage episode. Patient was recently admitted to the hospital for hypothyroidism-palpitations, weight loss,
diarrhea 07/22 through 07/24. Patient was started on methimazole 10 mg daily, metoprolol 50 in the morning and 20 5 in the evening. He had another episode of palpitations where his heart rate went to 1 80-1 90 and was in the ER on 07/25. Today
patient states that he had a rage like episode, he cried a lot for no reason, and during this episode he had palpitations with his heart rate going up to 160s to 180s, severe flushing, headaches, dizziness and a sensation of passing out. This
episode lasted for few hours, currently he still is experiencing headaches, dizziness and a sensation of passing out. He also reports to have a left-sided chest pain, that is significant ongoing radiating into his left armpit about 3-4/10 in
intensity. His headaches are generalized, and just there-no intensity, not associated with any nausea emesis or blurring of vision. Every time he has this episode he feels like ' adrenal and not some hormone release'. Denies having similar
episodes in the past, also denies having any mental health conditions in the past.
If applicable-neuro sx onset
Onset of symptoms known: No
Time pt last seen normal is known: No
Past History
<Makenna Reed MD, Resident - Last Filed: 07/29/24 06:10>
Past History
ED Past Medical History: GERD, HTN, Psychiatric (Bipolar disorder, anxiety), Other (MRSA infection) and Other (Anxiety); Negative IDDM
ED Past Surgical History: Other (Cataract extraction)
Social History
Tobacco: Former smoker
Alcohol: None
Drug: None
Personal: Single
Living: with family
Employment: Employed
Family History
Family History: Negative Diabetes, Hypertension or CAD
Review of Systems
<Makenna Reed MD, Resident - Last Filed: 07/29/24 06:10>
Review of Systems
Allergies reviewed?: Yes
Other source history: family
Constitutional: Reports no symptoms
EENT: Reports no symptoms
Respiratory: Reports trouble breathing
Cardiac: Reports chest pain, diaphoresis, palpitations and other (near syncope)
ABD/GI: Reports constipated
: Reports no symptoms
Musculoskeletal: Reports no symptoms
Skin: Reports no symptoms
Neurological: Reports dizzy and headache
Endocrine: Reports polyuria and polydipsia
Hematologic/Lymphatic: Reports no symptoms
Psychiatric: Reports no symptoms
Phy Exam
<Makenna Reed MD, Resident - Last Filed: 07/29/24 06:10>
General Physical Exam
General Presentation: well appearing and mild distress
General Skin: warm
General Habitus: normal
General Hydration: appears well hydrated
ENT Exam
ENT Exam: EOMI and TM's normal
Eye Exam
Eye Exam: PERRL, EOMI and disc sharp
Cardiovascular Exam
Cardiovascular Exam: regular rate/rhythm, no edema, no gallop, no murmur and normal peripheral pulses
Heart Sounds: normal
Pulmonary Exam
Pulmonary Exam: lungs clear, no respiratory distress, no rales, no crackles and no rhonchi
Respirations: accessory muscle use
Gastrointestinal Exam
Gastrointestinal Exam: normal bowel sounds, non tender, soft, no pulsatile mass and non distended
Neurological Exam
Neurological Exam: alert, oriented x3, CN II-XII intact, normal reflexs and no sensory deficits
Musculoskeletal Exam
Musculoskeletal Exam: full ROM
Skin Exam
Skin Exam: normal color
Course
<Makenna Reed MD, Resident - Last Filed: 07/29/24 06:10>
Orders/Labs/Results
Orders:
Orders
07/28/24 12:33
Electrocardiogram (*1) Urgent
Reason for Study: Tachycardia
EKG- Treatment ONCE
07/28/24 12:42
Complete Blood Count/With Diff Urgent
Comprehensive Metabolic Panel Urgent
Free T4 Urgent
TSH Reflex To Free T4 Urgent
Troponin I Urgent
07/28/24 14:25
Lorazepam [Ativan] 1 mg PO NOW STA
07/28/24 14:34
PSYCHIATRY CONSULT Routine
Consulting Provider: Eliezer Elder
Was physician already notified: Yes
07/28/24 14:44
Lorazepam [Ativan] 1 mg IV NOW STA
Lorazepam [Ativan] 2 mg .ROUTE .STK-MED ONE
Metoprolol [Lopressor] 5 mg .ROUTE .STK-MED ONE
Metoprolol [Lopressor] 5 mg IV NOW STA
Abnormal Lab Results
07/28/24
12:42
WBC 4.5 L 10^3/uL
(4.8-10.8)
MPV 10.9 H fL
(7.4-10.4)
Absolute Monos (auto) 0.8 H 10^3/uL
(0.1-0.6)
Monocytes % 17.0 H %
(1.7-9.3)
ALT 77 H U/L
(0-50)
TSH (Reflex) < 0.02 L uIU/ml
(0.47-4.68)
Free T4 4.13 H ng/dl
(0.78-2.19)
07/28/24 12:42
07/28/24 12:42
Vital Signs
Initial and Last Documented VS:
Initial Vital Signs
Pulse Resp Pulse Ox
104 27 97
07/28/24 12:33 07/28/24 12:33 07/28/24 12:33
Last Documented Vital Signs
Temp Pulse Resp BP Pulse Ox
97.9 F 104 24 135/75 95
07/28/24 12:35 07/28/24 18:45 07/28/24 18:45 07/28/24 18:00 07/28/24 18:45
<Anthony Okeefe MD - Last Filed: 07/31/24 08:23>
Orders/Labs/Results
Orders:
Orders
07/28/24 12:33
Electrocardiogram (*1) Urgent
Reason for Study: Tachycardia
EKG- Treatment ONCE
07/28/24 12:42
Complete Blood Count/With Diff Urgent
Comprehensive Metabolic Panel Urgent
Free T4 Urgent
TSH Reflex To Free T4 Urgent
Troponin I Urgent
07/28/24 14:25
Lorazepam [Ativan] 1 mg PO NOW STA
07/28/24 14:34
PSYCHIATRY CONSULT Routine
Consulting Provider: Eliezer Elder
Was physician already notified: Yes
07/28/24 14:44
Lorazepam [Ativan] 1 mg IV NOW STA
Lorazepam [Ativan] 2 mg .ROUTE .STK-MED ONE
Metoprolol [Lopressor] 5 mg .ROUTE .STK-MED ONE
Metoprolol [Lopressor] 5 mg IV NOW STA
Abnormal Lab Results
07/28/24
12:42
WBC 4.5 L 10^3/uL
(4.8-10.8)
MPV 10.9 H fL
(7.4-10.4)
Absolute Monos (auto) 0.8 H 10^3/uL
(0.1-0.6)
Monocytes % 17.0 H %
(1.7-9.3)
ALT 77 H U/L
(0-50)
TSH (Reflex) < 0.02 L uIU/ml
(0.47-4.68)
Free T4 4.13 H ng/dl
(0.78-2.19)
07/28/24 12:42
07/28/24 12:42
Vital Signs
Initial and Last Documented VS:
Initial Vital Signs
Pulse Resp Pulse Ox
104 27 97
07/28/24 12:33 07/28/24 12:33 07/28/24 12:33
Last Documented Vital Signs
Temp Pulse Resp BP Pulse Ox
97.9 F 104 24 135/75 95
07/28/24 12:35 07/28/24 18:45 07/28/24 18:45 07/28/24 18:00 07/28/24 18:45
<Makenna Reed MD, Resident - Last Filed: 07/29/24 06:10>
MDM/Problems Addressed
Differential Diagnosis Includes:
Hyperthyroidism, questionable MENS, manic episode from his bipolar disorder, panic attacks, severe anxiety, acute CAD.
MDM/Problems Addressed:
Labs pending, Ativan given to come his anxiety, psychiatry consulted.
Chronic conditions affecting care: HTN
<Makenna Reed MD, Resident - Last Filed: 07/29/24 06:10>
*Pulse Oximetry
Patient hypoxic: no
*EKG
Interpreted by ED Provider?: Yes
EKG Intrepretation Date: 07/28/24
Interpretation: abnormal
Comparison EKG: no changes
Rate: tachycardiac
Rhythm: sinus
[place]: indeterminate
Interval: normal QT interval and normal CT interval
QRS Pattern: normal QRS
Ischemia: no ischemia
*Manager Client Interpretation
Rate: tachycardiac
Interpretation: normal
Heart Rate: 108
Rhythm: sinus
*Critical Care Note
Total Time (30-74mins, 75-104mins- exclusive of procedures): Not Applicable
ED Attending Note
<Makenna Reed MD, Resident - Last Filed: 07/29/24 06:10>
-
Portions of this chart may have been created with voice recognition software.� Occasional wrong word or��sound alike� substitutions may have occurred due to the inherent limitations of voice recognition software.
<Anthony Okeefe MD - Last Filed: 07/31/24 08:23>
ED Attending Note
Patient seen and examined by attending physician: Yes
ED Attending Note:
Patient with history of bipolar disorder and recently diagnosed with and started on medications for hyperthyroidism, presents to ED secondary to recurrent episode of chest palpitations, sadness, dizziness, and headache while using at home. When
checked at home, his heart rate was greater than 180 bpm. Patient is currently taking methimazole and metoprolol. He has an appointment with log processor operator for initial consultation in 3 days. Denies suicidal or homicidal ideation. Denies loss
of appetite. Denies shortness of breath. Denies nausea or vomiting. Denies difficulty with ambulation. Patient was evaluated in ED on multiple occasions recently, with similar complaints.
Physical Exam
General: mild distress, not acutely ill. afebrile
Head: nc/at. eomi
Neck: supple. no meningeal signs.
Heart: tachycardic, no murmur. equal radial pulses.
Lungs: no acute respiratory distress. clear bilaterally
Abdomen: normal bowel sounds. not tender.
Neuro: alert and oriented. no focal neurological deficits
Skin: no rash
Psychiatric: well kept. interactive and cooperative
Extremities: no edema. no calf tenderness.
Pt evaluated briefly by (psychiatry) - pt refused further discussion with psychiatrist, as he already has an on-going relationship with his own psychiatrist.
Patient given treatment via Ativan and Lopressor IV, with subjective and objective improvement in symptoms. After treatment, patient's heart rate remains between 80s and low 100s. Blood work results discussed with patient, including mildly
elevated free T4 level. Reiterated the importance of taking methimazole 20 mg daily, as well as metoprolol 50 mg twice daily, until reevaluation with his log processor operator on . In the meantime, as patient reports significant improved
symptoms with treatment via Ativan, patient will be provided with a short course of Ativan, to be used as needed, but not together with Xanax, which he already has at home. Patient expresses understanding at time of discharge, to the care of his
mother
Discharge Plan
Departure
Patient Disposition: Home (Routine Discharge)
Date of Disposition: 07/28/24
Time of Disposition: 18:53
Patient with high blood pressure during this ER visit?: Yes
Condition: Good
Discharge Problem:
Hyperthyroidism
Instructions: Hyperthyroidism (overactive thyroid)
Prescriptions:
New
lorazepam [Ativan] 1 mg tablet
1 mg PO TID PRN (Reason: anxiety) Qty: 6 0RF
No Action
pantoprazole [Protonix] 40 mg tablet,delayed release (DR/EC)
40 mg PO HS
cyclobenzaprine 10 mg Tablet
10 mg PO HSPRN PRN (Reason: muscle spasms)
atorvastatin [Lipitor] 40 mg Tablet
40 mg PO QPM
quetiapine [Seroquel] 300 mg Tablet
300 mg PO QPM
Rx Instructions:
pt takes daily at 1800
clonazepam 1 mg Tablet
1 mg PO BIDPRN PRN (Reason: anxiety)
Rx Instructions:
07/28/24: Filled #15 tablets/30 day supply on 07/21/[address] [facility] 89 [[id number]]
oxcarbazepine [Trileptal] 300 mg Tablet
300 mg PO DAILY
aspirin 81 mg Tablet,Delayed Release (Dr/Ec)
81 mg PO QPM
alprazolam [Xanax] 0.5 mg Tablet
0.5 mg PO DAILYPRN PRN (Reason: anxiety)
Patient Comments:
07/28/24: Filled #15 tablets/15 day supply on 07/21/[address] [facility] 89 [[id number]]
oxcarbazepine [Trileptal] 600 mg Tablet
600 mg PO HS
fluticasone propionate 50 mcg/actuation [place],Suspension
1 spray INTRANASAL HS
metoprolol succinate 50 mg tablet extended release 24 hr
50 mg PO BID
Patient Comments:
Patient was instructed to increase metoprolol XL to 50mg BID on Sunday, 07/25; however, he has continued to take 50mg in AM and 25mg HS.
methimazole 10 mg tablet
20 mg PO DAILY
Referrals:
Nickolas Henry MD [Consulting Staff] -
Gerry Velasco CRNP [Family Provider] -
Activity Restrictions/Additional Instructions:
As discussed, please follow-up with referred log processor operator on , as scheduled, for further evaluation and treatment. Your prescription has been sent electronically to [facility] pharmacy in [place].
Interventions
Interventions:
*Risk Screen - Suicide Last Done: 07/28/24 12:35
*General Assessment Last Done: 07/28/24 12:35
*Neglect/Abuse Screening Last Done: 07/28/24 12:35
ED- Fall Risk Assessment Last Done: 07/28/24 12:46
*ED COVID-19 Vaccine History Last Done: 07/28/24 12:35
*Nursing Disposition Last Done: 07/28/24 19:08
ED- Pulmonary Assessment Last Done: 07/28/24 12:46
ED-Psychological Assessment Last Done: 07/28/24 12:46
ED- Neurological Assessment Last Done: 07/28/24 12:46
ED- Cardiac Assessment Last Done: 07/28/24 12:46
ED Swallowing Screen Last Done: 07/28/24 12:46
Discharge Date and Time
Discharge Date/Time: 07/28/24 18:58
Print Language: YI
[2024-07-28 14:28] LABS: TSH Reflex To Free T4 < 0.02 uIU/ml (0.47-4.68)
[2024-07-28] MEDS: ATIVAN 1 MG IV (14:47)
[2024-07-28] MEDS: LOPRESSOR 5 MG IV (14:47)
[2024-07-28 16:11] LABS: Free T4 4.13 ng/dl (0.78-2.19)
--- NOTE | 2024-07-28 16:16 | W.PN.UPDATE ---
Update Note
Progress Note Update
Pt is a 39 yo male who presented to ED with an episode of palpitations/increased heart rate, feeling of rage, with severe flushing, headaches, dizziness and a sensation of passing out, lasting for few hours. Pt was recently diagnosed with
hyperthyroidism. Psychiatry asked to evaluate due to hx of Bipolar d/o. Upon approach, pt resting on stretcher in no distress, after receiving Ativan and beta-ronda. Pt states his mental health is stable, he takes medications and sees a
psychiatrist, states his symptoms are not like robbi or depression, came on abruptly; pt states he can tell the difference. Pt denies any acute mood disturbance, states he does not need a psychiatric consult.
Imp/Rec: Bipolar d/o by hx, appears stable on outpatient medications; pt declines full consult. Pt should follow up with his outpatient psychiatrist when medically cleared
== END 2024-07-28 18:58 | disposition home or self-care (01) ==
LOC: EMR 12:28
PROVIDERS: Emergency Medicine; CONSULT PHYSICIAN Psychiatry & Neurology Psychiatry; EMERGENCY PHYSICIAN Emergency Medicine; FAMILY PHYSICIAN Registered Nurse
DX: E05.90 Thyrotoxicosis, unspecified without thyrotoxic crisis or storm (principal); I10 Essential (primary) hypertension; E78.5 Hyperlipidemia, unspecified; K21.9 Gastro-esophageal reflux disease without esophagitis; E03.9 Hypothyroidism, unspecified; R07.89 Other chest pain; Z79.899 Other long term (current) drug therapy; Z87.891 Personal history of nicotine dependence; F41.9 Anxiety disorder, unspecified
CPT/HCPCS: 96374; 96375; 99284; 80053; 84439; 84443; 84484; 85025; 93005

== ENCOUNTER → 2024-08-29 07:55 | Outpatient (REF) | payer OTHER, SELFPAY | LOC: RCS 07:55 | PROVIDERS: ATTENDING PHYSICIAN Internal Medicine Cardiovascular Disease; FAMILY PHYSICIAN Nurse Practitioner Adult Health | DX: R00.2 Palpitations (principal); R00.0 Tachycardia, unspecified | CPT/HCPCS: 93306 ==

== ENCOUNTER → 2024-09-09 08:06 | Outpatient (REF) | payer OTHER, SELFPAY | LOC: RAD 08:06 | PROVIDERS: ATTENDING PHYSICIAN Nurse Practitioner Adult Health; FAMILY PHYSICIAN Internal Medicine Endocrinology, Diabetes & Metabolism | DX: E05.90 Thyrotoxicosis, unspecified without thyrotoxic crisis or storm (principal) | CPT/HCPCS: 76536 ==